=== PATIENT | female | born 1985 ===

== ENCOUNTER 2017-11-21 18:27 | Emergency (ER) | payer OTHER ==
[~2017-11-21] VITALS: Ht 165.1 cm; Wt 72.0 kg
[2017-11-21 18:38] VITALS: BP 165/118; PULSE 95; RESP 16; TEMP 96.8; O2SAT 97
--- NOTE | 2017-11-21 18:52 | PD ---
HPI Chief Complaint: Musculoskeletal Complaint Time Seen by Provider: 18:37 Travel History International Travel<30 days: No Contact w/Intl Traveler<30days: No Traveled to known affect area: No History of Present Illness HPI 32-year-old female presents to the ED for evaluation of 1 month history of posterior left calf pain. Gradual onset. Pain is rated 2/10, worsened by touch. Radiates in the posterior thigh. Patient denies fever, chills, numbness , tingling, weakness, limitations range of motion of the extremity. She quit smoking 29 days ago. She denies long periods of immobility, history of blood clots. She endorses wearing compression socks most days. She does not use oral contraception. Endorses familial history of varicose veins and blood clots. She saw her primary care provider and attempted to have an outpatient ultrasound that was unable due to insurance concerns. [facility] Social History Tobacco Use: No (quit 1 month ago) Allergies-Medications (Allergen,Severity, Reaction): Coded Allergies: No Known Allergies (Unverified Adverse Reaction, Unknown, 11/21/17) Reported Meds & Prescriptions Reported Meds & Active Scripts Active No Active Prescriptions or Reported Medications Review of Systems Except as stated in HPI: all other systems reviewed are Neg Physical Exam Narrative GENERAL: Well-nourished, well-developed female in no acute distress. SKIN: Focused skin assessment warm/dry. HEAD: Normocephalic. EYES: No scleral icterus. No injection or drainage. NECK: Supple, trachea midline. No JVD or lymphadenopathy. CARDIOVASCULAR: Regular rate and rhythm without murmurs, gallops, or rubs. RESPIRATORY: Breath sounds equal bilaterally. No accessory muscle use. GASTROINTESTINAL: Abdomen soft, non-tender, nondistended. MUSCULOSKELETAL: No cyanosis, moves extremities spontaneously. FOCUSED LEFT LOWER EXTREMITY EXAM: 2+ DP pulse. 1+ edema to the knee. Multiple varicose veins. Homans sign positive. Tenderness to palpation of the posterior thigh. No limitations range of motion. Neurovascularly intact distally. BACK: Nontender without obvious deformity. No CVA tenderness. Data Data Last Documented VS Vital Signs Date Time Temp Pulse Resp B/P (MAP) Pulse Ox O2 Delivery O2 Flow Rate FiO2 11/21/17 20:38 11/21/17 19:58 90 16 99 Room Air 11/21/17 18:38 96.8 Orders Orders Us Leg Venous Doppler (11/21/17 18:37) Ed Discharge Order (11/21/17 20:31) [facility] Medical Decision Making Medical Screen Exam Complete: Yes Emergency Medical Condition: Yes Differential Diagnosis Superficial thrombophlebitis versus dependent edema versus DVT versus other Narrative Course 32-year-old female presents to the ED for evaluation of 1 month history of posterior left calf pain. Gradual onset. Pain is rated 2/10, worsened by touch. Radiates in the posterior thigh. She quit smoking 29 days ago. She denies long periods of immobility, history of blood clots. She endorses wearing compression socks most days. She does not use oral contraception. Endorses familial history of varicose veins and blood clots. Vitals reviewed. Patient's hypertensive on presentation this improves during the course of her stay. She is anxious appearing. Left leg is edematous as compared to the right. Patient has notable varicose veins. Homans sign positive on the left. She endorses tenderness to palpation of the left posterior thigh. Ultrasound reveals no evidence of DVT. Patient's instructed to take [id number] NSAIDs, use warm compresses, wear compression stockings and follow with her primary care provider. She is agreeable to the care plan. She is stable and discharged home. Diagnosis Primary Impression: Varicose veins of left lower extremity with edema Referrals: Primary Care Physician Additional Instructions: Rest, hydrate. Return to normal, gentle activity as tolerated. Wear compression stockings daily. Warm compresses applied to area pain along with [id number] NSAIDs may help to improve your symptoms. Follow with your primary care provider. Return to the ED for worsening symptoms or any urgent or emergent medical condition. Scripts No Active Prescriptions or Reported Meds Disposition: 01 DISCHARGE HOME Condition: Stable Meli Earl Nov 21, 2017 18:52
[2017-11-21 19:58] VITALS: BP 144/100; PULSE 90; RESP 16; O2SAT 99
[2017-11-21 20:16] VITALS: BP 140/92
--- NOTE | 2017-11-21 20:27 | RADRPT ---
EXAM DATE/TIME: 11/21/2017 19:37 [facility] COMPARISON: No previous studies available for comparison. INDICATIONS : Left calf swelling and pain. MEDICAL HISTORY : Left leg swelling and pain. SURGICAL HISTORY : None. ENCOUNTER: Initial ACUITY: 1 day PAIN SCORE: 0/10 LOCATION: Left leg. TECHNIQUE: Venous ultrasound of the leg was performed from the inguinal ligament to the proximal calf. Real-jayleen e, color Doppler and spectral tracing, compression and augmentation techniques were used. FINDINGS: There is normal compressibility of the deep venous system from the inguinal region to the proximal ca lf. No echogenic clot is seen in the lumen of the common femoral, femoral, popliteal, and posterior tibial veins. There is a normal response of the venous system to proximal and distal augmentation an d respiration. CONCLUSION: Negative study. No venous thrombosis of the left lower extremity. Ahsan Bae MD on November 21, 2017 at 20:25 Board Certified Radiologist. This report was verified electronically.
== END 2017-11-21 20:38 | disposition home or self-care (01) ==
LOC: NEDAMB 18:27
DX: I83.892 Varicose veins of left lower extremity with other complications (principal); Z87.891 Personal history of nicotine dependence
CPT/HCPCS: 93971; 99284